=== PATIENT | female | born 1990 | race Caucasian/White ===

== ENCOUNTER 2016-05-10 18:22 | Observation (INO) | payer MEDICAID ==
[~2016-05-10] VITALS: Ht 177.8 cm; Wt 127.0 kg
[2016-05-10] MEDS ORDERED: ONDANSETRON 4 MG VIAL IV PUSH PRN (18:50)
[2016-05-10] MEDS ORDERED: LIDOCAINE 1% BUFFERED 1 ML SYR INTRADERM PRN (18:50)
[2016-05-10] MEDS ORDERED: ACETAMIN/BUTALB/CAFF PO PRN (18:50)
[2016-05-10] MEDS: BETAMETHASONE SUSP 6 MG/ML VIAL 5 ML IM SCH (19:12)
[2016-05-10] MEDS: LACT RINGERS 1,000 ML IV SCH (19:12)
[2016-05-10 19:44] VITALS: Ht 177.8 cm; Wt 127.0 kg
[2016-05-10] MEDS: LABETALOL 100 MG TAB PO SCH (20:41)
[2016-05-11] MEDS: LACT RINGERS 1,000 ML IV SCH (02:20)
[2016-05-11] MEDS: LABETALOL 100 MG TAB PO SCH (08:12)
[2016-05-11 14:14] VITALS: BP_SYST 116
[2016-05-11 14:15] VITALS: RESP 18; TEMP 98
[2016-05-11] MEDS: BETAMETHASONE SUSP 6 MG/ML VIAL 5 ML IM SCH (17:00)
== END 2016-05-11 16:40 | disposition home or self-care (01) ==
LOC: LDOP 18:22 → LD 18:58 → OB 05-11 11:10
PROVIDERS: ADMIT Obstetrics & Gynecology; ATTEND Obstetrics & Gynecology
DX: O10.913 Unspecified pre-existing hypertension complicating pregnancy, third trimester (principal); Z3A.33 33 weeks gestation of pregnancy; O99.213 Obesity complicating pregnancy, third trimester
CPT/HCPCS: 59025; 80053; 80307; 81050; 83615; 84156; 85025; 96360; 96361; 96372